=== PATIENT | female | born 1960 | race Caucasian/White ===

== ENCOUNTER 2018-03-19 17:56 | Emergency (ER) | payer OTHER ==
[~2018-03-19] VITALS: Ht 170.2 cm; Wt 76.0 kg
[~2018-03-19 17:56] MED LIST: BUPROPION HCL150 M2 PO; CITALOPRAM HBR20 MG PO; FIORICET,ESG1 TABLET PO; KEFLEX500 MG PO; METHOCARBAMOL500 MG PO; PERCOCET 5/31 TABLET PO; TOPAMAX50 MG PO; TRAMADOL HCL50 MG PO; VIBRAMYCIN100 MG PO; WELLBUTRIN SR100 MG PO
[2018-03-19 18:47] LABS: HEMATOCRIT 38.7 % (36.0-46.0); HEMOGLOBIN 13.4 G/DL (11.9-15.5); MCH 29.8 PG (29.0-34.0); MCHC 34.6 G/DL (30.0-36.0); PLATELET COUNT 242 K/uL (156-360); RBC DIS.WIDTH-CV 12.3 % (11.8-14.6); RBC DIS.WIDTH-SD 38.8 % (39-53); WHITE BLOOD COUNT 7.3 K/uL (4.1-10.2)
[2018-03-19 18:57] LABS: ALBUMIN 4.2 g/dL (3.2-4.8); CHLORIDE 104 mEq/L (99-109); POTASSIUM 3.9 mEq/L (3.7-5.4); SODIUM 138 mEq/L (136-147)
[2018-03-19 18:59] LABS: GLUCOSE 98 mg/dL (70-99); TOTAL PROTEIN 6.7 g/dL (6.4-8.3)
[2018-03-19 19:01] LABS: TOTAL BILIRUBIN 0.5 mg/dL (0.0-1.0)
[2018-03-19 19:03] LABS: ALKALINE PHOSPHATASE 74 IU/L (3-129); CREATININE 0.8 mg/dL (0.6-1.3); GFR ESTIMATE (CALCULATED) > 59 mL/min/
[2018-03-19 19:04] LABS: UREA NITROGEN (BUN) 13 mg/dL (9-23)
[2018-03-19 19:05] LABS: AST (GOT) 17 IU/L (2-34)
[2018-03-19 19:06] LABS: ALT (GPT) 21 IU/L (3-49)
[2018-03-19 19:42] LABS: APPEARANCE CLEAR ((CLEAR)); BILIRUBIN NEGATIVE; BLOOD NEGATIVE; COLOR STRAW ((YELLOW)); GLUCOSE (STRIP) NEGATIVE; KETONES NEGATIVE; LEUKOCYTES NEGATIVE; NITRITE NEGATIVE; PROTEIN (STRIP) NEGATIVE; SPECIFIC GRAVITY 1.002 (1.000-1.030); UCUL ADDED? NO; UROBILINOGEN 0.2 MG/DL (0.2-1.0)
[2018-03-19 22:41] VITALS: BP 134/79
== END 2018-03-19 22:47 | disposition home or self-care (01) ==
LOC: EME 17:56
PROVIDERS: Physician Assistant
DX: R10.31 Right lower quadrant pain (principal); M54.5 Low back pain; F32.9 Major depressive disorder, single episode, unspecified; F41.9 Anxiety disorder, unspecified; Z88.2 Allergy status to sulfonamides; Z87.891 Personal history of nicotine dependence
CPT/HCPCS: 74177; 76856; 80053; 81003; 85027; 99281; 99284; J7030